=== PATIENT | female | born 1940 | race Caucasian/White ===

== ENCOUNTER 2019-04-13 16:24 | Emergency (ER) | payer MEDICARE, BC ==
--- NOTE | 2019-04-13 16:45 | Emergency Department Record ---
History of Present Illness - General Chief Complaint: Fall Injury Stated Complaint: FALL/RT SHOULDER PAIN Time Seen by Provider: 04/13/19 16:38 Source: Patient Mode of Arrival: Ambulatory Limitations: No limitations - History of Present Illness Initial Comments: The patient is here due to walking on the street and tripping on the curb. She then fell forward and caught herself with her R arm and jammed her R shoulder. The patient denies any head or neck trauma or any rib injury. Since she has had R shoulder pain. The patient has been up walking without difficulty since the incident. The patient has had both shoulders operated on in the past due to rotator cuff issues. MD Complaint: Fall Onset/Timin -: Hour(s) Fall From: Standing When Fall Occurred: 4-6 hours RESISTANCE WELDER Fall Witnessed: Yes, by bystander Place Fall Occurred: Street Loss of Consciousness: None Prolonged Down Time?: No Symptoms Prior to Fall: None Severity scale (1-10): 7 Quality: Aching Associated Symptoms: Denies - [place] Coma Scale Eye Response: (4) Open spontaneously Motor Response: (6) Obeys commands Verbal Response: (5) Oriented [place] Total: 15 - Related Data Home Medications Medication Instructions Recorded Confirmed Last Taken Amitriptyline HCl 100 mg PO QHS 04/13/19 04/13/19 Unknown Aspirin [Aspir-Low] 81 mg PO DAILY 04/13/19 04/13/19 Unknown Atorvastatin Calcium 80 mg PO DAILY 04/13/19 04/13/19 Unknown Donepezil HCl 2 tab PO DAILY 04/13/19 04/13/19 Unknown Gabapentin [Neurontin] 600 mg PO BID 04/13/19 04/13/19 Unknown Levothyroxine Sodium 75 mcg PO QAM 04/13/19 04/13/19 Unknown Liraglutide [Victoza 2-Taran] 1.2 mg SQ DAILY 04/13/19 04/13/19 Unknown Lisinopril 10 mg PO DAILY 04/13/19 04/13/19 Unknown Metaxalone 800 mg PO QHS 04/13/19 04/13/19 Unknown Metformin HCl 1,000 mg PO BID 04/13/19 04/13/19 Unknown Vit C/Vit E AC/Lut/Copper/Zinc 1 tab PO DAILY 04/13/19 04/13/19 Unknown [PreserVision Lutein Softgel] Previous Rx's Medication Instructions Recorded Hydrocodone/Acetaminophen [Salters 1 each PO QID #12 tablet 04/13/19 5-325 Tablet] Allergies Allergy/AdvReac Type Severity Reaction Status Date / Time codeine Allergy RASH Verified 04/13/19 16:38 Sulfa (Sulfonamide Allergy RASH Verified 04/13/19 16:38 Antibiotics) Travel Screening - Travel/Exposure Within Last 30 Days Have you traveled within the last 30 days?: No Review of Systems Constitutional: Denies: Chills, Fever Eyes: Denies: Eye discharge ENT: Denies: Congestion Respiratory: Denies: Cough, Dyspnea Past Medical History - SOCIAL HISTORY Smoking Status: Never smoker Alcohol Use: None Drug Use: None - RESPIRATORY Hx Respiratory Disorders: No - CARDIOVASCULAR Hx Cardio Disorders: Yes Hx Hypertension: Yes Comment:: leaking valve - NEURO Hx Neuro Disorders: No - GI Hx GI Disorders: No - Hx Genitourinary Disorders: No - ENDOCRINE Hx Endocrine Disorders: Yes Hx Diabetes: Yes Hx Thyroid Disease: Yes - MUSCULOSKELETAL Hx Musculoskeletal Disorders: No - PSYCH Hx Psych Problems: No - HEMATOLOGY/ONCOLOGY Hx Hematology/Oncology Disorders: No Family Medical History Any Significant Family History?: No Physical Exam - General General Appearance: Alert, Oriented x3, Cooperative, No acute distress - Head Head exam: Atraumatic, Normocephalic, Normal inspection - Eye Eye exam: Normal appearance, PERRL - Neck Neck exam: Normal inspection, Full ROM. negative: Tenderness - Respiratory Respiratory exam: Normal lung sounds bilaterally. negative: Respiratory distress - Cardiovascular Cardiovascular Exam: Regular rate, Normal rhythm, Normal heart sounds - GI/Abdominal GI/Abdominal exam: Soft, Normal bowel sounds. negative: Tenderness - Extremities Extremities exam: Normal inspection (The R shoulder has no swelling or obvious dislocation. The dorsal R wrist is mildly swollen. ), Normal capillary refill, Tenderness (There is R shoulder and dorsal R wrist tenderness with wrist swelling. The R arm is NVI.), Other (The R arm is NVI.). negative: Full ROM (The patient is not able to flex, extend or abduct the R shoulder. ), Joint swelling - Back Back exam: Denies: Vertebral tenderness - Neurological Neurological exam: Alert, Normal gait. negative: Abnormal gait, Motor sensory deficit Course Vital Signs 04/13/19 16:33 Temperature 97.6 F Pulse Rate 87 Respiratory 18 Rate Blood Pressure 142/48 Pulse Ox 97 - Reevaluation(s) Reevaluation #1: The patient is doing better after returning from xray. She denies any wrist pain but is still unable to significantly range of motion the R shoulder due to pain. I did discuss the xray results with the patient and daughter and did discuss the fact that I clinically doubt any acute fracture but believe the patient has a r otator cuff issue. She does have an appointment with an Orthopedic doctor in [place] next month. I did discuss the need to get that moved up. Medical Decision Making - Data Complexity MDM Data: X-Ray Ordered and/or Reviewed - Radiology Data Radiology results: Report reviewed (R Wrist: neg for any definite fx. R Shoulder: Equivical glenoid lucency, neg for dislocation. Distal clavicle resorption. ) Disposition Disposition: Discharge Clinical Impression: Rotator cuff dysfunction Qualifiers: Laterality: right Qualified Code(s): M67.911 - Unspecified disorder of synovium and tendon, right shoulder Disposition: Home, Self-Care Condition: (2) Stable Instructions: Rotator Cuff Injury (ED) Additional Instructions: Please keep the R arm in a sling for 1-2 weeks and please see your Orthopedic Surgeon in [place] by next week. Take Tylenol OR Salters for pain. Return to the ER for any worsening issues. Prescriptions: Hydrocodone/Acetaminophen [Salters 5-325 Tablet] 1 each PO QID #12 tablet Forms: Patient Portal Access Time of Disposition: 17:52 Quality - Quality Measures Quality Measures: N/A - Blood Pressure Screening View Details: Yes Does Patient Have Any of the Following: Active Dx of HTN Blood Pressure Classification: Hypertensive Reading Systolic Measurement: 142 Diastolic Measurement: 48 Screening for High Blood Pressure: Patient Exclusion, Hx of HTN [[id number]]
--- NOTE | 2019-04-13 17:25 | RADIOLOGY REPORT ---
EXAMINATION: Right Wrist Complete, Minimum Three Views EXAM DATE: 04/13/2019 5:08 PM INDICATION: trauma ENCOUNTER: Initial FINDINGS: No definite fracture or other acute bone abnormality is seen. On the lateral view, there is slight do rsal tilting of the radiocarpal joint. This may be seen with a distal radial fracture. If there is an old healed fracture this may account for the appearance, otherwise this raises concern for an otherw ise radiographically occult acute distal radial fracture. Osteopenia is also noted. Dictated by: Alli Glover MD on 04/13/2019 5:19 PM. .
--- NOTE | 2019-04-13 17:27 | RADIOLOGY REPORT ---
EXAMINATION: Right Shoulder, Complete Minimum Two Views EXAM DATE: 04/13/2019 5:11 PM INDICATION: trauma ENCOUNTER: Initial FINDINGS: A horizontally oriented lucency is seen projecting over the glenoid on the Grashey and AP views. The finding is equivocal, but could represent a nondisplaced fracture. No other acute bone abnormality is seen. Resorption of the distal clavicle is noted. Dictated by: Alli Glover MD on 04/13/2019 5:23 PM. .
[2019-04-13] MEDS: HYDROCODONE/APAP 5/325MG TABLET PO ONE (17:58)
== END 2019-04-13 18:02 | disposition home or self-care (01) ==
LOC: ER 16:24
DX: S40.011A Contusion of right shoulder, initial encounter (principal); M67.911 Unspecified disorder of synovium and tendon, right shoulder; M25.531 Pain in right wrist; E11.9 Type 2 diabetes mellitus without complications; I10 Essential (primary) hypertension; W18.09XA Striking against other object with subsequent fall, initial encounter; Y92.414 Local residential or business street as the place of occurrence of the external cause
CPT/HCPCS: 99284